=== PATIENT | female | born 1985 | race Asian ===

== ENCOUNTER 2021-11-17 10:22 | Inpatient (IN) ==
[2021-11-17] MEDS ORDERED: LACTATED RINGER'S 1,000 ML IV PRN (10:32)
[2021-11-17] MEDS ORDERED: OXYTOCIN 30 UNITS/500 ML BAG IV PRN ×2 (10:32→14:32)
[2021-11-17] MEDS ORDERED: ePHEDrine sulfate 50 MG/ML AMP ONE (10:56)
[2021-11-17] MEDS ORDERED: BUPIVACAINE 0.25% 30 ML VIAL ONE (10:57)
[2021-11-17] MEDS ORDERED: LIDOCAINE 2%/EPINEPHRINE 1:200,000 20 ML SDV ONE (10:57)
[2021-11-17] MEDS ORDERED: SODIUM CHLORIDE 0.9% INJ 10 ML VIAL ONE (10:57)
[2021-11-17] MEDS ORDERED: fentaNYL citrate 100 MCG/2 ML VIAL ONE (10:57)
[2021-11-17] MEDS ORDERED: fentaNYL 2MCG/ML ROPIVACAINE 1.25MG/ML 100 ML BAG EPI ONE (10:58)
[2021-11-17 11:00] LABS: Hematocrit (blood only) 38.1 % (34.1-44.9); Hemoglobin 12.9 g/dl (12.0-16.0); Mean Corpuscular Hemoglobin 31.5 pg (25.0-34.0); Mean Corpuscular Hgb Conc 33.9 g/dL (32.0-36.0); Mean Corpuscular Volume 93.2 fL (80.0-100.0); Mean Platelet Volume 11.4 fL (9.4-12.3); Platelet Count 145 K/uL (130-400); RDW Coefficient of Variation 13.7 % (11.5-14.5); RDW Standard Deviation 46.5 fL (36.4-46.3); Red Blood Count 4.09 M/uL (3.93-5.22); White Blood Count 8.52 K/ul (4.8-10.8)
--- NOTE | 2021-11-17 11:00 | History & Physical Report ---
Date of Service November 17, 2021 Assessment & Plan (1) Active labor at term: (2) 39 weeks gestation of : Plan admit, iv, labs. plan epidural and then arom when comfortable. fhts categ 1. History of Present Illness Chief Complaint: regular ctx Primary Care Provider: NO PCP 36yo at 39+wks ega presents to LD with above cc. No rom. +VB. Regular painful ctx since 930 this am. Cx 7cm per nurse. PNC c/b 1. AMA PNL rhpos, ri, gbs neg OBH: x 1 GYNH: nl paps, no stds Allergies Allergy/AdvReac Type Severity Reaction Status Date / Time No Known Drug Allergies AdvReac Verified 11/14/21 09:20 Home Medications Medication Instructions Recorded Confirmed Type prenat.vits,kane,wly-jqkv-[id number] 1 tab PO DAILY 04/23/21 11/14/21 History Patient History Medical History (Updated 11/17/21 @ 10:58 by Nery Riggins MD, FACOG) History of tuberculosis Varicella vaccine Surgical History [place] teeth extracted Family History Father Cerebral hemorrhage Grandfather (Paternal) Cerebral hemorrhage Uncle Cerebral hemorrhage Denies family history of Ovarian cancer Prostate cancer Diabetes Myocardial infarction Breast cancer Colorectal cancer Hypertension Social History (Updated 11/14/21 @ 19:17 by Elenita Grey RN) Smoking Status: Never smoker Hx Alcohol Use: No Hx Substance Use: No Preferred Language: Stateless Communication Ability: Effective Visual Impairment: No Limitations Hearing Ability: Normal Emergency Veterinary Assistant Required: No Beliefs That Will Affect Care: None marital status: marital status details: Kelly Prado (34) [phone] Current Living Situation: Spouse and Family Current Living Situation Comment: and daughter. 1 fish current occupational status: employed current occupation: Teacher Feels Safe at Home: Yes Childhood Exposure to Second-Hand Smoke: No Dental Care, Regularly: Yes Physical Activity Frequency: 3-4 Times per Week Seatbelt Use: always Sunscreen Use: No Do you think of yourself as: straight/heterosexual Review of Systems as per Subjective / HPI Physical Exam Constitutional: WD/WN, vitals as above Respiratory: normal respiratory effort, lungs clear to auscultation Cardiovascular: Rate/Rhythm: regular rate and regular rhythm Gastrointestinal (Abdomen): soft gravid nt Musculoskeletal: no edema nontender calves Neurologic: grossly normal Psychiatric: A+Ox3, euthymic affect Genitourinary: Manual OB Exam: + cervical dilation (nursing) 7 cm OB Exam Monitor Tracing: + external FHT monitor used, + external uterine monitor used (q2), + category I and + normal FHT variability Results & Data ([facility]) Vital Signs (Past 12 Hours) Vital Signs Pulse BP 11/17/21 10:28 73 130/78 Code Status & VTE Plan VTE Prophylaxis Plan VTE Prophylaxis will be ordered: No Coding Level of Care Code None Diagnoses Active labor at term 39 weeks gestation of Z3A.39
--- NOTE | 2021-11-17 11:09 | Anesthesiology Consultation ---
Date of Service November 17, 2021 Assessment & Plan (1) Encounter for pre-operative examination: Chart Review Chart Review: Acceptable Risk for Labor Epidural History Allergies Allergy/AdvReac Type Severity Reaction Status Date / Time No Known Drug Allergies AdvReac Verified 11/14/21 09:20 Medications Home Medications Medication Instructions Recorded Confirmed Last Taken prenat.vits,kane,yks-guzg-nobzg 1 tab PO DAILY 04/23/21 11/14/21 Unknown Past Medical History Medical History History of tuberculosis Varicella vaccine Past Family History Family History Father Cerebral hemorrhage Grandfather (Paternal) Cerebral hemorrhage Uncle Cerebral hemorrhage Denies family history of Ovarian cancer Prostate cancer Diabetes Myocardial infarction Breast cancer Colorectal cancer Hypertension Past Surgical History Surgical History [place] teeth extracted Social History Smoking Status: Never smoker Hx Alcohol Use: No Hx Substance Use: No Physical Exam Vital Signs Last Vital Signs Pulse 73 11/17/21 10:28 BP 130/78 11/17/21 10:28 Testing Laboratory Results 11/17/21 10:46
[2021-11-17] MEDS ORDERED: fentaNYL 2MCG/ML ROPIVACAINE 1.25MG/ML 100 ML BAG EPI PRN (11:33)
[2021-11-17] MEDS ORDERED: NALOXONE HCL 0.4 MG/1 ML VIAL/CARP IV PRN (11:33)
[2021-11-17] MEDS ORDERED: ONDANSETRON INJ 2 MG/ML 2 ML VIAL IV PRN (11:33)
[2021-11-17] MEDS ORDERED: ePHEDrine sulfate 50 MG/ML AMP IV PRN (11:33)
[2021-11-17] MEDS ORDERED: NALOXONE HCL 1 MG in SODIUM CHLORIDE 0.9% 1000ML 1,000 ML IV PRN (11:33)
--- NOTE | 2021-11-17 14:24 | Delivery Summary ---
Vaginal Delivery Summary Date of Service November 17, 2021 Vaginal Delivery Summary and 2nd Degree LAC The patient dilated to complete and pushed to deliver a viable female infant Apgars 8 and 9 via over 2nd degree perineal laceration. Mouth and nose bulb suctioned at perineum. Shoulders and body delivered with ease. Infant was vigorous and crying at . Cord clamped at 30 seconds of life and infant to maternal abdomen where the cord was then doubly clamped and cut. Placenta delivered spontaneously and intact, three-vessel cord. Hemostasis achieved with dilute pitocin and uterine massage and drainage of the bladder for approximately 300 cc under sterile conditions. Laceration repaired in usual fashion with 3-0 vicryl. Rectal neg for sutures. Cervix and sulci intact. EBL 300 cc. Mother and baby in recovery. [facility] [place] Vaginal Delivery Charge Delivery Type Details: and 2nd Degree LAC
[2021-11-17] MEDS ORDERED: oxyCODONE/ACETAMINOPHEN 5mg/325mg TAB PO PRN (14:32)
[2021-11-17] MEDS ORDERED: BENZOCAINE 20% AER SPR 82.5 GM CAN EXT PRN (14:32)
[2021-11-17] MEDS ORDERED: HYDROCORTISONE ACETATE 25 MG SUPP PR PRN (14:32)
[2021-11-17] MEDS ORDERED: ACETAMINOPHEN 325 MG TAB PO PRN (14:32)
--- NOTE | 2021-11-17 14:59 | Anesthesia Procedure Note ---
Date of Service November 17, 2021 Anesthesia Post Epidural Note Vital Signs Vital Signs: Temp Pulse Resp BP Pulse Ox 36.7 C 84 18 113/68 99 11/17/21 10:28 11/17/21 14:53 11/17/21 14:50 11/17/21 14:53 11/17/21 14:21 Pain Intensity Abdomen: Pain Intensity: 0 Notes Mental Status: alert / awake / arousable and participated in evaluation Nausea / Vomiting: adequately controlled Pain: adequately controlled Airway Patency, RR, SpO2: stable & adequate BP & HR: stable & adequate Hydration State: stable & adequate Neuraxial Anesthesia: was administered and sensory block is resolving Anesthetic Complications: no major complications apparent Epidural: Removed without complications and With tip intact
[2021-11-17] MEDS ORDERED: OXYTOCIN 20 UNITS in LACTATED RINGER'S 1,000 ML IV SCH (15:00)
[2021-11-17] MEDS: DOCUSATE SODIUM 100 MG CAP PO SCH (21:17)
--- NOTE | 2021-11-18 05:59 | Obstetrical Progress Note ---
Date of Service <Nadja Kristyn Hale DO - Last Filed: 11/18/21 07:02> November 18, 2021 Assessment & Plan <Nadja Kristyn Hale DO - Last Filed: 11/18/21 07:02> (1) : - Feels well today. Eating well, voiding well, ambulating well - Pain well controlled with ibuprofen 600 mg Q4H PRN - OOB, ambulation, diet progression as tolerated - After discharge (planned for 11/19/2021), [address] follow up with Dr[address] Riggins <Nery Riggins MD, FACOG - Last Filed: 11/18/21 08:08> (1) : Plan stable routine care, rh pos, ri. breast Day #:: 1 Subjective <Nadja Kristyn Hale DO - Last Filed: 11/18/21 07:02> Lalito Horton is a 36 yo female who is now PPD #1 following spontaneous vaginal delivery at 39 weeks. Reports feeling well this morning. Some abdominal cramping and 2-3/10 pain well managed on analgesics. Voiding well. Tolerating meals overnight and able to ambulate some. Some persistent dark red lochia. Currently breast feeding. Review of Systems Denies fever, chills, sweats. Denies SOB, difficulty breathing, chest pain, palpitations, and chest pressure. Denies breast pain. Denies dysuria. Denies headache or changes in vision. Physical Exam <Nadja Hale DO - Last Filed: 11/18/21 07:02> General: Alert and oriented. No acute distress. CV: Regular rate and rhythm. No murmurs. Respiratory: CTA bilaterally. No rhonchi, wheezes, or crackles. No increased work of breathing. Abdomen: Positive bowel sounds. Soft, tender to deep palpation, non distended. Uterus: Fundus firm and palpable 2 cm below the umbilicus. Lower extremities: No LE edema. No deep calf pain. Juan's negative bilaterally. Results & Data ([facility]) <Nadjarani Hale DO - Last Filed: 11/18/21 07:02> Vital Signs (Past 12 Hours) Vital Signs Temp Pulse Pulse Resp BP Pulse Ox O2 Del Method 11/18/21 04:00 36.8 C 71 16 111/74 99 Room Air 11/17/21 23:30 36.5 C 84 18 115/78 98 Room Air 11/17/21 21:00 36.7 C 93 H 16 114/69 98 Room Air Resident Activity Tracking <Nadja Hale, DO - Last Filed: 11/18/21 07:02> Resident Involvement: Resident Care Provided Care Provided: OB Delivery
[2021-11-18] MEDS: IBUPROFEN 600 MG TAB PO PRN ×2 (08:03→20:24)
[2021-11-18] MEDS: DOCUSATE SODIUM 100 MG CAP PO SCH ×2 (08:03→20:25)
[2021-11-18] MEDS: PRENATAL VITAMIN 1 TAB PO SCH (08:03)
[2021-11-18] MEDS ORDERED: DIPHTHERIA/TETANUS/PERTUSSIS 0.5 ML SYR/VIAL IM ONE (09:00)
--- NOTE | 2021-11-19 05:48 | Obstetrical Progress Note ---
Date of Service <Nadja Hale DO - Last Filed: 11/19/21 06:45> November 19, 2021 Assessment & Plan <Nadja Hale DO - Last Filed: 11/19/21 06:45> (1) : - Feels well today. Eating well, voiding well, ambulating well - Pain well controlled with ibuprofen 600 mg Q4H PRN - OOB, ambulation, diet progression as tolerated - Encouraged continued breast feeding - Vitals stable. Hgb 12.9 - Discharge home today. Instructions reviewed - After discharge, 6 week follow up with Dr. Riggins <Bibiana Ferraro MD, FACOG - Last Filed: 11/19/21 07:54> (1) : Subjective <Nadja Hale DO - Last Filed: 11/19/21 06:45> Lalito Horton is a 36 yo female who is now PPD #2 following spontaneous vaginal delivery at 39 weeks. Reports feeling well this morning. Denies abdominal cramping and 0/10 pain well managed on analgesics. Voiding normally. Tolerating meals overnight and able to ambulate some. Endorses passing gas and has had a hard, painful bowel movement. Some persistent lochia with some improvement this morning. She describes this as very dark but is starting to lighten. She is concerned with how long the bleeding/discharge will last. Currently breast feeding. She is concerned that she is not producing milk. Review of Systems Denies fever, chills, sweats. Denies SOB, difficulty breathing, chest pain, palpitations, and chest pressure. Denies breast pain. Denies dysuria. Denies headache or changes in vision. Physical Exam <Nadja Hale DO - Last Filed: 11/19/21 06:45> General: Alert and oriented. No acute distress. CV: Regular rate and rhythm. No murmurs. Respiratory: CTA bilaterally. No rhonchi, wheezes, or crackles. No increased work of breathing. Abdomen: Positive bowel sounds. Soft, nontender, non distended. Uterus: Fundus firm and palpable 3 cm below the umbilicus. Lower extremities: No LE edema. No deep calf pain. Juan's negative bilaterally. Results & Data ([facility]) <Nadja Hale DO - Last Filed: 11/19/21 06:45> Vital Signs (Past 12 Hours) Vital Signs Temp Pulse Resp BP BP O2 Del Method 11/18/21 23:45 36.8 C 87 18 103/66 103/66 Room Air 11/18/21 20:26 36.8 C 97 H 16 109/65 Room Air <Bibiana Ferraro MD, FACOG - Last Filed: 11/19/21 07:54> Co-Signing Physician Notes Resident Physician Supervision Note: I interviewed and examined the patient. Discussed with Dr. Hale and agree with findings and plan as documented in the note. Any exceptions or clarifications are listed here: [None] Documented By: Bibiana Ferraro MD, FACOG Resident Activity Tracking <Nadja Hale DO - Last Filed: 11/19/21 06:45> Resident Involvement: Resident Care Provided Care Provided: OB Delivery
[2021-11-19] MEDS: DOCUSATE SODIUM 100 MG CAP PO SCH (08:25)
[2021-11-19] MEDS: IBUPROFEN 600 MG TAB PO PRN (08:25)
[2021-11-19] MEDS: PRENATAL VITAMIN 1 TAB PO SCH (08:25)
== END 2021-11-19 10:35 | disposition home or self-care (01) | DRG 807 ==
LOC: OPB 10:22 → 4S1 10:23 → 4E2 16:50